=== PATIENT | female | born 1995 | race Caucasian/White ===

== ENCOUNTER 2024-10-20 08:24 | Inpatient (IN) ==
[2024-10-20] MEDS ORDERED: LIDOCAINE 1% LOCAL 20 ML VIAL INFIL PRN (09:02)
[2024-10-20] MEDS: LACTATED RINGER'S 1,000 ML IV PRN (09:26)
[2024-10-20 09:28] LABS: Hematocrit (blood only) 37.8 % (37.0-47.0); Hemoglobin 12.8 g/dl (12.0-16.0); Mean Corpuscular Hemoglobin 30.0 pg (25.0-34.0); Mean Corpuscular Volume 88.7 fL (80.0-100.0); Platelet Count 166 K/uL (130-400); RDW Standard Deviation 43.8 fL (36.4-46.3); Red Blood Count 4.26 M/uL (4.20-5.40); White Blood Count 11.01 K/ul (4.8-10.8)
[2024-10-20] MEDS ORDERED: LIDOCAINE 2% MPF LOCAL 5 ML VIAL EPI PRN (15:17)
[2024-10-20] MEDS ORDERED: BUPIVACAINE 0.25% PF 30 ML VIAL EPI PRN (15:17)
[2024-10-20] MEDS ORDERED: diphenhydrAMINE 50 MG/ML VIAL IV PRN (15:17)
[2024-10-20] MEDS ORDERED: SODIUM CHLORIDE 0.9% PF INJ 10 ML VIAL EPI STA (15:17)
[2024-10-20] MEDS ORDERED: NALOXONE HCL 0.4 MG/1 ML VIAL/CARP IV PRN (15:17)
[2024-10-20] MEDS ORDERED: ONDANSETRON INJ 2 MG/ML 2 ML VIAL IV PRN (15:17)
[2024-10-20] MEDS ORDERED: NALOXONE HCL 1 MG in SODIUM CHLORIDE 0.9% 1,000 ML IV PRN (15:17)
[2024-10-20] MEDS ORDERED: ROPIVACAINE 0.5% PF 5 MG/ML 20 ML VIAL EPI PRN (15:17)
[2024-10-20] MEDS ORDERED: LIDOCAINE 2%/EPINEPHRINE 1:200,000 20 ML PF EPI STA (15:17)
[2024-10-20] MEDS ORDERED: NALBUPHINE HCL INJ 10 MG/ML AMP IV PRN (15:17)
[2024-10-20] MEDS ORDERED: SODIUM CHLORIDE 0.9% PF INJ 10 ML VIAL EPI PRN (15:17)
--- NOTE | 2024-10-20 15:17 | Anesthesiology Consultation ---
Date of Service October 20, 2024 Assessment & Plan (1) Encounter for pre-operative examination: Chart Review Chart Review: Patient NOT seen in Pre Admission Testing and Acceptable Risk for Labor Epidural Consults Requested none History Height/Weight Height: 5 ft 6 in Weight: 79.925 kg Allergies Allergy/AdvReac Type Severity Reaction Status Date / Time No Known Allergies Allergy Verified 10/18/24 14:52 Medications Home Medications Medication Instructions Recorded Confirmed Last Taken PNV [id number] PO 03/30/24 10/18/24 Unknown [ Gummies] docusate sodium [Colace] PO 03/30/24 10/18/24 Unknown ferrous sulfate PO 03/30/24 10/18/24 Unknown metoclopramide HCl 5 mg tablet 5 mg PO Q6H nausea #30 tabs 04/09/24 10/18/24 Unknown (Reglan) promethazine 25 mg tablet 25 mg PO Q6H PRN nausea and 05/11/24 10/18/24 Unknown vomiting #20 tabs omeprazole 20 mg tablet,delayed 20 mg PO DAILY 10/20/24 10/20/24 10/20/24 06:00 release Active Medications Generic Name Dose Route Start Last Admin Trade Name Freq PRN Reason Stop Dose Admin Lactated Ringer's 1,000 mls @ 125 mls/hr 10/20/24 09:02 10/20/24 09:26 Lr IV 10/22/24 09:01 125 mls/hr .Q8H PRN Administration L&D Protocol Protocol Past Medical History Medical History Patient denies significant medical history Past Family History Family History Grandmother (Maternal) Diabetes Grandmother (Paternal) Diabetes Mother Hypertension Denies family history of Ovarian cancer Breast cancer Colorectal cancer Past Surgical History Surgical History Status post surgery birthmark removed from side of face History of colposcopy Social History Smoking Status: Never smoker Do You Dip or Chew Tobacco: No Hx Alcohol Use: No Hx Substance Use: No Physical Exam Vital Signs Last Vital Signs Temp 98.2 F 10/20/24 11:05 Pulse 82 08/16/25 15:03 Resp 22 10/20/24 11:05 BP 140/79 10/20/24 15:03 Testing Laboratory Results 10/20/24 09:15
[2024-10-20] MEDS: fentANYL 2 MCG/ML BUPIVacaine 0.125%-NSS 100ML BAG EPI PRN (15:41)
[2024-10-20] MEDS: BUPIVACAINE 0.25% PF 30 ML VIAL EPI STA (15:41)
[2024-10-20] MEDS: ACETAMINOPHEN 325 MG TAB PO PRN (20:38)
[2024-10-20] MEDS: OXYTOCIN 30 UNITS/NSS 30 UNITS/500 ML BAG IV PRN (22:42)
--- NOTE | 2024-10-20 22:47 | Delivery Summary ---
Vaginal Delivery Summary Date of Service October 20, 2024 Vaginal Delivery Summary and 1st Degree LAC Spontaneous vaginal delivery the patient arrived and at 40 weeks gestation this morning with rupture of membranes in early labor she was group B strep negative she was admitted her contractions progressed a bulging fore bag was then broken for clear fluid she progressed to fully dilated note she had an epidural as well delivering a baby in occiput anterior position after the head was delivered there was some light meconium noticed bulb suction her mouth and nares and then drink gentle traction on the baby no excessive force live vigorous female infant cord clamped and cut cord blood obtained placenta removed with traction IV Pitocin started small first-degree tear repaired with 3-0 Vicryl sponge and instrument counts correct QBL 116 mL [facility] Vaginal Delivery Charge Delivery Type Details: and 1st Degree LAC
[2024-10-20] MEDS ORDERED: OXYTOCIN 30 UNITS/NSS 30 UNITS/500 ML BAG IV PRN (22:57)
[2024-10-20] MEDS ORDERED: HYDROCORTISONE ACETATE 25 MG SUPP PR PRN (22:57)
[2024-10-20] MEDS ORDERED: DIPHTHER/TETAN/PERTUS Vaccine (Tdap, Adol/Adult) 0.5mL IM ONE (22:57)
[2024-10-21] MEDS: BENZOCAINE 20% SPRY 85 APPLN/85 GM CAN EXT PRN (00:21)
[2024-10-21] MEDS: IBUPROFEN 600 MG TAB PO PRN (00:22)
[2024-10-21] MEDS: ACETAMINOPHEN 325 MG TAB PO PRN (02:30)
[2024-10-21 06:03] LABS: Hematocrit (blood only) 34.6 % (37.0-47.0); Hemoglobin 11.6 g/dl (12.0-16.0); Mean Corpuscular Hemoglobin 29.8 pg (25.0-34.0); Mean Corpuscular Volume 88.9 fL (80.0-100.0); Platelet Count 163 K/uL (130-400); RDW Standard Deviation 44.1 fL (36.4-46.3); Red Blood Count 3.89 M/uL (4.20-5.40); White Blood Count 14.14 K/ul (4.8-10.8)
--- NOTE | 2024-10-21 07:41 | Anesthesia Procedure Note ---
Date of Service October 21, 2024 Anesthesia Post Epidural Note Vital Signs Vital Signs: Temp Pulse Resp BP Pulse Ox O2 Del Method 36.7 C 74 16 106/71 100 Room Air 10/21/24 04:50 10/21/24 04:50 10/21/24 04:50 10/21/24 04:50 10/21/24 04:50 10/21/24 04:50 Pain Intensity Head: Pain Intensity: 1 Notes Mental Status: alert / awake / arousable and participated in evaluation Nausea / Vomiting: adequately controlled Pain: adequately controlled Airway Patency, RR, SpO2: stable & adequate BP & HR: stable & adequate Hydration State: stable & adequate Neuraxial Anesthesia: was administered and sensory block is resolving Anesthetic Complications: no major complications apparent Epidural: Removed without complications and With tip intact
[2024-10-21] MEDS: DOCUSATE SODIUM 100 MG CAP PO SCH (08:57)
[2024-10-21] MEDS: PRENATAL VITAMIN 1 TAB PO SCH (08:57)
[2024-10-21 15:28] VITALS: RESP 18; O2SAT 100
[2024-10-22 06:07] LABS: Hematocrit (blood only) 34.0 % (37.0-47.0); Hemoglobin 11.3 g/dl (12.0-16.0)
--- NOTE | 2024-10-22 06:11 | Obstetrical Progress Note ---
Date of Service <Marnie Godoy DO - Last Filed: 10/22/24 07:19> October 22, 2024 Assessment & Plan <Marnie Godoy DO - Last Filed: 10/22/24 07:19> (1) examination following vaginal delivery: Plan Plan for discharge today. Please call with worsening pain or new symptoms. <Cole Good MD, FACOG - Last Filed: 10/22/24 15:14> (1) examination following vaginal delivery: Subjective <Marnie Godoy DO - Last Filed: 10/22/24 07:19> Ambulation: ambulating normally Voiding: no voiding problems Passing Gas:: Yes Diet Tolerance:: regular diet Lochia:: Small Feeding Type:: breast feeding Patient feels well this morning. Reports 5/10 generalized pain but no other acute complaints. Review of Systems All systems reviewed & are unremarkable except as noted in HPI & below Denies fever, chills. Denies SOB, wheezing. Denies CP, palpitations. Physical Exam <Marnie Godoy DO - Last Filed: 10/22/24 07:19> Constitutional WD/WN, vitals as above Respiratory normal respiratory effort, lungs clear to auscultation Cardiovascular RRR, no murmur, no edema Gastrointestinal (Abdomen) normal bowel sounds, soft, nontender, no hepatosplenomegaly Skin no rashes, warm and dry Psychiatric A+Ox3, euthymic affect Genitourinary OB Exam Abdomen: + fundal height (+1 cm) Fundus: + firm Lymphatic no LE edema Results & Data <Marnie Godoy DO - Last Filed: 10/22/24 07:19> Vital Signs (Past 12 Hours) Vital Signs Temp Pulse Resp BP Pulse Ox O2 Del Method 10/21/24 23:10 36.6 C 81 18 107/76 100 Room Air 10/21/24 19:30 36.7 C 78 18 105/74 100 Room Air Supervising Physician <Cole Good MD, FACOG - Last Filed: 10/22/24 15:14> Co-Signing Physician Notes Resident Physician Supervision Note: I was present with [Name of resident] during the history and exam. I discussed the case with the resident and agree with the findings and plan as documented in the note. Any exceptions or clarifications are listed here: [None] Documented By: Cole Good MD, FACOG Resident Activity Tracking <Marnie Godoy DO - Last Filed: 10/22/24 07:19> Resident Involvement: Resident Care Provided Care Provided: Adult Hospital Medicine
[2024-10-22 08:20] VITALS: BP 111/75; TEMP 98.2
[2024-10-22 08:59] VITALS: PULSE 81
== END 2024-10-22 13:15 | disposition home or self-care (01) | DRG 807 ==
LOC: OPB 08:24 → 4S1 08:27 → 4E2 10-21 01:15